=== PATIENT | female | born 1955 | race Caucasian/White ===

== ENCOUNTER → 2018-04-13 | Outpatient (CLI) | payer BC | LOC: M SLEEP 19:14 | DX: G47.33 Obstructive sleep apnea (adult) (pediatric) (principal); R40.0 Somnolence | CPT/HCPCS: 95810 ==

== ENCOUNTER → 2018-05-05 | Outpatient (CLI) | payer BC ==
--- NOTE | 2018-05-18 09:38 | SLEEPCENT ---
DATE OF PROCEDURE: 05/05/2018 ORDERED BY: July Nuñez Nocturnal polysomnography was performed for the titration of pressure therapy in this patient with severe obstructive sleep apnea syndrome. Apnea-hypopnea index 71.5. For testing, a [employer]ics Elsi View full face mask of small size was used, 4 cm of water pressure was initially applied to the circuit and the lights were extinguished. 7 hours and 44 minutes of data were reviewed. There were 202 minutes of sleep identified. Sleep latency was prolonged at 29 minutes. REM latency was prolonged at 233 minutes. Sleep architecture remained quite fragmented with periods of wake as pressure mask tolerance was suboptimal. Overall sleep efficiency was 44.5%. The patient's electrocardiogram showed sinus rhythm with an average heart rate of 58 beats per minute. EEG fairly normal waveforms for awake and sleep stages. Persistence of respiratory events prompted an increase in pressure therapy for sleep progression. Identification of optimal pressure challenging. Nonetheless, the patient did sleep through REM with only 3 respiratory disruptions at a CPAP pressure of 13. Later in the study a bilevel device was attempted and backup rate was added. Best sleep was seen on CPAP pressure of 13 cm. There was minimal activity in limb leads and remaining measures of sleep physiology were normal. IMPRESSION: Obstructive sleep apnea syndrome (G47.33). RECOMMENDATIONS: Initiation of CPAP at a pressure of 13 cm would seem reasonable based on these findings. Close clinical followup is recommended given the severity of the patient's disease and a full night retitration may be necessary once the patient becomes accustomed to the use of pressure therapy. cc: Vito Solis MD
== END ==
LOC: M SLEEP 19:16
PROVIDERS: ATTEND Nurse Practitioner Family
DX: G47.33 Obstructive sleep apnea (adult) (pediatric) (principal)

== ENCOUNTER → 2018-12-19 | Outpatient (REF) | payer BC, OTHER ==
[2018-12-19 18:18] LABS: C REACTIVE PROTEIN QUANTITATIV < 0.30 MG/DL (0.00-0.30); RHEUMATOID FACTOR QUANT < 10.0 IU/ML (<15.0); TOTAL PROTEIN 7.2 GM/DL (6.4-8.2)
[2018-12-20 14:12] LABS: ALBUMIN 4.41 GM/DL (3.29-5.55); ALBUMIN % 61.3 % (55.8-66.1); ALPHA-1-GLOBULIN % 4.3 % (2.9-4.9); ALPHA-1-GLOBULINS 0.31 GM/DL (0.17-0.41); ALPHA-2-GLOBULINS 0.76 GM/DL (0.42-0.99); ALPHA-2-GLOBULINS % 10.5 % (7.1-11.8); BETA-1-GLOBULINS 0.49 GM/DL (0.28-0.60); BETA-1-GLOBULINS % 6.8 % (4.7-7.2); BETA-2-GLOBULINS 0.48 GM/DL (0.19-0.55); BETA-2-GLOBULINS % 6.7 % (3.2-6.5); GAMMA GLOBULIN % 10.4 % (11.1-18.8); GAMMA GLOBULINS 0.75 GM/DL (0.65-1.58)
[2018-12-21 14:22] LABS: ANTINUCLEAR ANTIBODIES DIRECT Negative (Negative)
== END ==
LOC: M LABDRAW1 17:07
PROVIDERS: ATTEND Orthopaedic Surgery
DX: S22.030A Wedge compression fracture of third thoracic vertebra, initial encounter for closed fracture (principal); S22.040A Wedge compression fracture of fourth thoracic vertebra, initial encounter for closed fracture; X58.XXXA Exposure to other specified factors, initial encounter; Y92.89 Other specified places as the place of occurrence of the external cause

== ENCOUNTER → 2019-01-10 | Outpatient (CLI) | payer OTHER ==
[~2019-01-10] MED LIST: PROHANCE 279.3MG/ML 15ML VIAL (A9576) As Ordered ONE; PROHANCE 279.3MG/ML 5ML VIAL (A9576) As Ordered ONE
--- NOTE | 2019-01-10 17:17 | REPVR ---
EXAM: MR Thoracic Spine Without and With Contrast EXAM DATE/TIME: 01/10/2019 4:54 PM CLINICAL HISTORY: 63 years old, female; Condition or disease; Other: Wedge compression FX; Additional info: Wedge compression FX, R/O neoplasm/subacute comp FX TECHNIQUE: Imaging protocol: Multiplanar magnetic resonance images of the thoracic spine without and with intravenous contrast. Contrast material: PROHANCE; Contrast volume: 19 ml; Contrast route: IV; COMPARISON: No relevant prior studies available. FINDINGS: Vertebrae: There is a large T2 vertebral hemangioma. There additional small vertebral hemangiomas. There is a 12 mm lesion within the T8 vertebra anteriorly and to the right of midline. This does not have signal typical of a hemangioma. It is hypointense on T1-weighted images and enhances. This lesion is not included on axial images and therefore is not fully evaluated. There are no additional enhancing lesions in the marrow.There is anterior compression of the T3 and T4 vertebra. At T3 there is 60% loss of height of the vertebra. There is a milder compression of T4 with 30% loss of height. No bone marrow edema or bone marrow infiltrating lesion at these levels. No retropulsion. No additional fractures Spinal cord: The central canal of the spinal cord is minimally prominent, 1.2 mm. No definite syrinx. No mass. No abnormal enhancement. No cord compression. T1-T2: No significant disc disease. No significant spinal stenosis. T2-T3: No significant disc disease. No significant spinal stenosis. T3-T4: No significant disc disease. No significant spinal stenosis. T4-T5: No significant disc disease. No significant spinal stenosis. T5-T6: No significant disc disease. No significant spinal stenosis. T6-T7: Minimal disc bulge. Facet hypertrophy with mild right foraminal stenosis. No central stenosis. T7-T8: No significant disc disease. No significant spinal stenosis. T8-T9: No significant disc disease. No significant spinal stenosis. T9-T10: No significant disc disease. No significant spinal stenosis. T10-T11: No significant disc disease. No significant spinal stenosis. T11-T12: No significant disc disease. No significant spinal stenosis. Soft tissues: There is no paraspinous or intraspinal mass, hemorrhage or fluid collection. No enhancement. IMPRESSION: 1. Moderate T3 and mild T4 chronic compression fractures. No evidence of acute or pathologic fracture. 2. Multiple vertebral hemangiomas, the largest at T2. There is a 12 mm lesion within the T8 vertebra which may be an atypical hemangioma. Other neoplasms cannot be excluded. 3. No spinal stenosis. Electronically signed by: Oziel Grant On 01/10/2019 17:16:59 PM
== END ==
LOC: M RAD 15:14
PROVIDERS: ATTEND Orthopaedic Surgery
DX: S22.030A Wedge compression fracture of third thoracic vertebra, initial encounter for closed fracture (principal)
CPT/HCPCS: 72157; A9576